=== PATIENT | female | born 1975 | race Two or more races ===

== ENCOUNTER → 2024-12-13 | Outpatient (CLI) | payer OTHER, BC, SELFPAY ==
--- NOTE | 2024-12-13 08:45 | XR_ITS ---
Examination: Screening digital mammography, bilateral Computer aided detection 3-D breast Tomosynthesis, bilateral Date and time of exam: December 13, 2024 0848 hours Compared to mammograms dating to May 08, 2021. Indication: Screening Technique: Nonmagnified MLO, CC views of the breasts to been obtained, reconstructed from 3-D Tomosynthesis images. R2 computer aided detection program utilized for evaluation of suspicious masses and/or abnormal calcifications. 3-D Tomosynthesis images obtained. Findings: The breasts are heterogeneously dense, which may obscure small masses 14 mm focal asymmetry upper outer right breast anterior depth Impression: BI-RADS Category 0: Incomplete: Need additional imaging evaluation 14 mm focal asymmetry upper outer right breast anterior depth, recommend follow-up spot tomographic views of this asymmetry as well as bilateral breast sonography to complete the workup
== END | disposition home or self-care (01) ==
LOC: CDIM 08:39
PROVIDERS: Referring Provider Registered Nurse Community Health; Visit Provider Registered Nurse Community Health
DX: Z12.31 Encounter for screening mammogram for malignant neoplasm of breast (principal); N64.89 Other specified disorders of breast
CPT/HCPCS: 77063; 77067

== ENCOUNTER → 2024-12-17 | Outpatient (CLI) | payer OTHER, BC, SELFPAY ==
--- NOTE | 2024-12-17 08:25 | XR_ITS ---
Examination: Diagnostic digital mammography, unilateral, right Computer aided detection 3-D breast Tomosynthesis, unilateral Date and time of exam: December 17, 2024 at 0829 hours INDICATIONS: Mammogram December 13, 2024 14 mm focal asymmetry upper outer right breast anterior depth Technique: Nonmagnified MLO, CC views of the right breast have been obtained, reconstructed from 3-D Tomosynthesis images. R2 computer aided detection program utilized for evaluation of suspicious masses and/or abnormal calcifications. 3-D Tomosynthesis images obtained. Findings: The breast is heterogeneously dense, which may obscure small masses No suspicious masses confirmed on the spot compression views Impression: BI-RADS category 2: Benign findings Return to yearly follow-up mammography
--- NOTE | 2024-12-17 08:25 | XR_ITS ---
Examination: Breast ultrasound complete, bilateral Date and time of exam: December 17, 2024 0843 hours INDICATIONS: Mammogram December 13, 2024 14 mm focal asymmetry upper outer right breast Technique: Real-time grayscale ultrasonographic imaging bilateral breasts, including all 4 quadrants as well as nipple retroareolar and axillary regions. Findings: No cystic or solid mass involving either breast Dilated ducts throughout both breasts Left retroareolar dilated duct with intraluminal hyperechoic mass 7 x 3 x 4 mm IMPRESSION: BI-RADS Category 0: Incomplete: Need additional imaging evaluation Left breast retroareolar dilated duct with intraluminal hyperechoic mass 7 x 3 x 4 mm, recommend left breast ductogram follow-up
== END | disposition home or self-care (01) ==
PROVIDERS: PCP Registered Nurse Community Health; Referring Provider Registered Nurse Community Health; Visit Provider Registered Nurse Community Health
DX: R92.321 Mammographic fibroglandular density, right breast (principal); R92.8 Other abnormal and inconclusive findings on diagnostic imaging of breast
CPT/HCPCS: 76641; 77061; 77065; G0279

== ENCOUNTER → 2024-12-22 | Outpatient (CLI) | payer OTHER, BC, SELFPAY ==
[2024-12-22 12:19] LABS: Albumin, Serum 4.1 gm/dL (3.5-5.0); Anion Gap 9 (7-16); BUN/Creatinine Ratio 21 Ratio (12-20); Blood Urea Nitrogen 15 mg/dL (9-23); Calcium 9.2 mg/dL (8.3-10.6); Calcium (Corrected) 9.2 mg/dL (8.5-10.1); Carbon Dioxide 24.4 mMol/L (20.0-31.0); Chloride 107 mMol/L (98-107); Creatinine (Component) 0.7 mg/dL (0.6-1.3); Glucose 88 mg/dL (74-106); Osmolality,Calculated 279 (275-295); Phosphorous 2.7 mg/dL (2.4-5.1); Potassium 3.8 mMol/L (3.4-5.1); Sodium 140 mMol/L (136-145); eGFR > 60 See Note
== END | disposition home or self-care (01) ==
LOC: COPL 09:38
PROVIDERS: PCP Registered Nurse Community Health; Referring Provider Registered Nurse Community Health; Visit Provider Registered Nurse Community Health
DX: N63.25 Unspecified lump in the left breast, overlapping quadrants (principal); E78.2 Mixed hyperlipidemia
CPT/HCPCS: 36415; 80069

== ENCOUNTER → 2025-01-04 | Outpatient (CLI) | payer OTHER, BC, SELFPAY ==
[2025-01-04 12:27] LABS: HCG Qualitative,Urine Negative
--- NOTE | 2025-01-04 13:30 | XR_ITS ---
Examination: MRI bilateral breasts without intravenous contrast MRI bilateral breasts with intravenous contrast Date and time: January 04, 2025 1337 hours INDICATIONS: Diagnosis unspecified lump in the left breast, left breast retroareolar dilated duct with intraluminal hyperechoic mass 7 x 3 x 4 mm on left breast sonogram December 18, 2024 TECHNIQUE AND FINDINGS: Bilateral breast MRI images pre and post 17 cc gadolinium Heterogeneous signal throughout both breasts Dilated ducts in the retroareolar region left breast No focal increased signal in the dilated ducts retroareolar region left breast No dominant breast mass lesion No chest wall mass No pathologic axillary lymphadenopathy No focal areas of rapid wash-in and rapid washout on the postcontrast images IMPRESSION: BI-RADS Category 0: Incomplete: Need additional imaging evaluation Given the left breast sonogram report indicating filling defects in dilated left breast retroareolar ducts, recommend left breast ductogram follow-up
== END | disposition home or self-care (01) ==
PROVIDERS: PCP Registered Nurse Community Health; Referring Provider Registered Nurse Community Health; Visit Provider Registered Nurse Community Health
DX: R92.8 Other abnormal and inconclusive findings on diagnostic imaging of breast (principal); Z32.00 Encounter for pregnancy test, result unknown
CPT/HCPCS: 77049; 81025; A9577; C8908

== ENCOUNTER → 2025-03-29 | Outpatient (CLI) | payer BC, SELFPAY ==
--- NOTE | 2025-03-29 | XR_ITS ---
Examination: Right hip AP, lateral, AP pelvis 3 views Technique: Hip AP lateral, AP pelvis, 3 views Exam date and time: March 29, 2025, 1205 hours INDICATIONS: Right hip pain beginning 1 week ago FINDINGS: No right hip fracture or hip dislocation Mild narrowing hip joint Mild narrowing left hip joint Bones of the pelvis left hip intact IMPRESSION: Mild narrowing hip joints.
--- NOTE | 2025-03-29 | XR_ITS ---
Examination: Lumbar spine, 5 views Technique: Lumbar spine AP, lateral, coned lateral lower lumbar spine, bilateral obliques 5 views Exam date and time: March 29, 2025, 12 0 5:00 p.m. INDICATIONS: Low back pain beginning 1 week ago. FINDINGS: Satisfactory alignment lumbar vertebral bodies Mild lumbar spondylosis Moderate disc narrowing posteriorly L5-S1 No spondylolisthesis Intact pedicles No cortical bone destruction IMPRESSION: Moderate disc thinning posteriorly L5-S1
== END | disposition home or self-care (01) ==
LOC: CDIM 11:43
PROVIDERS: PCP Registered Nurse Community Health; Referring Provider Registered Nurse Community Health; Visit Provider Registered Nurse Community Health
DX: M25.851 Other specified joint disorders, right hip (principal); M51.370 Other intervertebral disc degeneration, lumbosacral region with discogenic back pain only
CPT/HCPCS: 72110; 73502